=== PATIENT | male | born 1965 | race Caucasian/White ===

== ENCOUNTER 2022-11-27 12:40 | Emergency (ER) | payer OTHER ==
[~2022-11-27] VITALS: Ht 172.7 cm; Wt 72.7 kg
[2022-11-27 12:55] VITALS: BP 122/78
== END 2022-11-27 15:50 | disposition home or self-care (01) ==
LOC: ER 12:40
DX: R10.9 Unspecified abdominal pain (principal)
CPT/HCPCS: 99281